=== PATIENT | female | born 1965 | race American Indian/Alaskan Native ===

== ENCOUNTER 2018-01-22 06:04 | Day surgery (SDC) | payer MEDICARE, MEDICAID ==
[2018-01-22] MEDS ORDERED: fentaNYL 100 MCG/2 ML SDV IV ONE ×3 (06:05→07:16)
[2018-01-22] MEDS ORDERED: Midazolam 1 MG/ML 2 ML SDV IV ONE ×3 (06:05→07:17)
[2018-01-22] MEDS ORDERED: fentaNYL 100 MCG/2 ML SDV ONE (06:15)
[2018-01-22] MEDS ORDERED: Midazolam 1 MG/ML 2 ML SDV ONE (06:15)
[2018-01-22] MEDS ORDERED: Dextrose 5%-0.45% NaCl 1,000 ML IV SCH (06:35)
--- NOTE | 2018-01-22 09:26 | OR ---
DATE: 01/22/2018 PROCEDURES PERFORMED: Esophagogastroduodenoscopy and multiple pinch biopsies. INSTRUMENT USED: GIF-H180 Olympus video panendoscope. PREMEDICATIONS: No oral topical anesthesia used. Fentanyl 100 mcg intravenous and Versed 2 mg intravenous. Nasal O2 cannula. The procedure was done under pulse oximetry, BP recording, and compliance monitor. INDICATION: The patient with longstanding heartburn, on PPI. Esophagogastroduodenoscopy is performed for detection of any active erosive lesions, Cox esophagus and/or malignancy also under consideration, H. pylori status to be determined, endoscopic hemostasis therapy if needed. DESCRIPTION OF PROCEDURE: The scope was passed with ease. Adequate visualization of the esophagus was made from proximal to distal areas. No upper esophageal lesions identified. No distal esophageal stricture. No uphill or downhill esophageal varices. No Annmarie-Farris tear. No evidence of erosive esophagitis by [place] criteria. No esophageal polyp or tumor mass identified. Z-line was seen at around 38 cm distal to the oral verge, configuration consistent with grade 1 by ZAP classification. Four-quadrant biopsies were taken from the pink columnar epithelium and sent for any evidence of intestinal metaplasia. No proximal gastric varices noted. Gastric fundus examination by retroflexion showed no polypoid lesions. No gastric ulcer, malignant mass, or vascular ectasia identified. The examination of the gastric mucosa was compromised a bit due to the presence of solid food material that could not be aspirated clear. Duodenal bulb showed no ulcer. Visualized second part of the duodenum was unremarkable. Multiple pinch biopsies were taken from the gastric antrum and proximal body and sent for PyloriTek test for H. pylori and histopathology. No bleeding was noted from any of the visualized areas at the completion of the examination. Photographs were taken of the duodenal bulb, gastric antrum and fundus, and distal esophagus. IMPRESSION: 1. Gastroparesis. 2. Columnar-lined distal esophagus. The patient tolerated the procedure well. [facility] /[id number]
--- NOTE | 2018-01-22 09:46 | LETTER ---
01/22/2018 JO-ANN [facility] [address] [place] [address] RE: CONNER KALAKj MORELOS : 1965 Dear Ms. Keenan: Ms. Kala Flores had esophagogastroduodenoscopy done this morning and she tolerated the procedure well. I herewith send a copy of the endoscopy note and photographs for your review. Thank you. Sincerely, [facility] /[id number]
[2018-01-22 10:41] VITALS: BP 109/63
== END 2018-01-22 09:24 | disposition home or self-care (01) ==
LOC: DL.ENDO 06:04
PROVIDERS: ATTEND Internal Medicine Gastroenterology
DX: R12 Heartburn (principal); K29.50 Unspecified chronic gastritis without bleeding; K22.8 Other specified diseases of esophagus; K31.84 Gastroparesis; E66.09 Other obesity due to excess calories; K21.9 Gastro-esophageal reflux disease without esophagitis; E03.9 Hypothyroidism, unspecified; F32.9 Major depressive disorder, single episode, unspecified; F41.1 Generalized anxiety disorder; Z87.891 Personal history of nicotine dependence; Z88.2 Allergy status to sulfonamides; Z91.011 Allergy to milk products; Z88.8 Allergy status to other drugs, medicaments and biological substances; Z91.048 Other nonmedicinal substance allergy status; Z79.899 Other long term (current) drug therapy
CPT/HCPCS: 43239; 87077; J2250; J3010; J7042

== ENCOUNTER 2018-01-28 05:58 | Day surgery (SDC) | payer MEDICARE, MEDICAID ==
[~2018-01-28 05:58] MED LIST: Dextrose 5%-0.45% NaCl 1,000 ML IV SCH; Sodium Chloride 0.9% 10 ML Syringe FLUSH PRN
[2018-01-28] MEDS ORDERED: fentaNYL 100 MCG/2 ML SDV IV ONE (05:59)
[2018-01-28] MEDS ORDERED: Midazolam 1 MG/ML 2 ML SDV IV ONE (05:59)
[2018-01-28] MEDS ORDERED: Midazolam 1 MG/ML 2 ML SDV ONE (06:17)
[2018-01-28] MEDS ORDERED: fentaNYL 100 MCG/2 ML SDV ONE (06:17)
[2018-01-28] MEDS: Dextrose 5%-0.45% NaCl 1,000 ML IV SCH (06:52)
[2018-01-28] MEDS: fentaNYL 100 MCG/2 ML SDV IV ONE ×4 (07:36→07:49)
[2018-01-28] MEDS: Midazolam 1 MG/ML 2 ML SDV IV ONE ×6 (07:38→07:46)
--- NOTE | 2018-01-28 08:38 | OR ---
DATE: 01/28/2018 PROCEDURES PERFORMED: Total colonoscopy and multiple cold snare polypectomies. INSTRUMENT USED: CF-H180AL Olympus video colonoscope. PREMEDICATIONS: Fentanyl 150 mcg intravenous and Versed 4 mg intravenous. Nasal O2 cannula. The procedure was done under pulse oximetry, BP recording, and manager scheduling. INDICATION: Screening colonoscopic examination is done for detection of any polypoid lesions and removal, endoscopic hemostasis therapy if needed. DESCRIPTION OF PROCEDURE: Initial rectal exam was unremarkable. Rigid anoscopy showed 3 mm sized benign-appearing polyp, cold snare polypectomy was done, the tissue was retrieved and sent for histopathology. The colonoscope was passed with ease up to the ileocecal area, photographs were taken of the cecum showing 3 mm sized benign-appearing polyp, cold snare polypectomy was done, the tissue was retrieved and sent for histopathology. No bleeding was noted from any of the visualized areas at the commencement of the examination. There was a large amount of fecal material, both solid and liquid, that had to be aspirated. No stricture. No vascular ectasia. No large isolated ulcerations seen. No evidence of diffuse inflammatory bowel disease in the form of friability, contact bleeding, or ulcerations. Probing the proximal sides of folds and flexures, using adequate distention and clearing up the stool material, withdrawal of the scope was made, cecum to rectum time over 6 minutes. No bleeding was noted from any of the visualized areas at the completion of examination. IMPRESSION: Diminutive rectal and cecal polyps. The patient tolerated the procedure well. [facility] /[id number]
--- NOTE | 2018-01-28 09:46 | LETTER ---
01/28/2018 JO-ANN [facility] [address] [place] [address] RE: KALA PRIETO : 1965 Dear Ms. Keenan: Ms. Kala Prieto had colonoscopic examination done this morning and she tolerated the procedure well. I herewith send a copy of the endoscopy note and photographs for your review. Thank you. Sincerely, [facility] /[id number]
[2018-01-28 10:39] VITALS: BP 118/66
== END 2018-01-28 10:00 | disposition home or self-care (01) ==
LOC: DL.ENDO 05:58
PROVIDERS: ATTEND Internal Medicine Gastroenterology
DX: Z12.11 Encounter for screening for malignant neoplasm of colon (principal); K63.5 Polyp of colon
CPT/HCPCS: 45385; J2250; J3010; J7042

== ENCOUNTER 2018-03-16 12:06 | Emergency (ER) | payer MEDICARE, MEDICAID ==
[2018-03-16] MEDS ORDERED: Sodium Chloride 0.9% 10 ML Syringe FLUSH PRN (12:42)
[2018-03-16] MEDS ORDERED: Sodium Chloride 0.9% 1,000 ML IV ONE (12:42)
--- NOTE | 2018-03-16 12:51 | EDM.PDOC ---
ED HPI GENERAL MEDICAL PROBLEM - General Chief Complaint: Neuro Symptoms/Deficits Stated Complaint: DIZZY, FELL DOWN Time Seen by Provider: 03/16/18 12:38 Source of Information: Reports: Patient, RN, RN Notes Reviewed History Limitations: Reports: No Limitations - History of Present Illness INITIAL COMMENTS - FREE TEXT/NARRATIVE: Pt to ER with c/o feeling dizzy beginning last evening. She states she fell to her knees but did not lose consciousness. Pt states the dizziness comes and goes. Pt states last time she had an episode such as this, she was dehydrated. Pt denies fever, chills, N/V/D, CP, SOB, visual disturbances, numbness or tingling. Onset: Sudden Onset Date: 03/15/18 - Related Data Allergies Allergy/AdvReac Type Severity Reaction Status Date / Time Milk Containing Products Allergy Other Verified 03/16/18 12:47 ragweed pollen Allergy Rash Verified 03/16/18 12:47 Sulfa (Sulfonamide AdvReac Stomach Verified 03/16/18 12:47 Antibiotics) Upset Home Meds: Home Meds Folic Acid 1 mg PO DAILY 08/03/16 [History] Hydroxychloroquine [Plaquenil] 200 mg PO BID 08/03/16 [History] Levothyroxine 25 mcg PO DAILY 08/03/16 [History] Losartan [Cozaar] 50 mg PO BID 08/03/16 [History] Mirtazapine [Remeron] 15 mg PO BEDTIME 08/03/16 [History] Omeprazole Magnesium [Prilosec Otc] 5 mg PO DAILY 08/03/16 [History] Black Cohosh 40 mg PO DAILY 10/24/17 [History] Naproxen 500 mg PO BIDMEALS 10/24/17 [History] Niacin 500 mg PO .BREAKFAST 10/24/17 [History] cloNIDine [Catapres] 0.1 mg PO DAILY 10/24/17 [History] predniSONE [Prednisone] 5 mg PO DAILY 10/24/17 [History] DULoxetine [Cymbalta] 20 mg PO DAILY 03/16/18 [History] Past Medical History HEENT History: Reports: Allergic Rhinitis Cardiovascular History: Reports: Hypertension Respiratory History: Reports: Pneumonia, Recurrent Gastrointestinal History: Reports: GERD, Hemorrhoids, Irritable Bowel Syndrome, Other (See Below) Other Gastrointestinal History: HX OF ABDOMINAL WALL CELLULITUS Genitourinary History: Reports: None 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 INSOMNIA Psychiatric History: Reports: Anxiety, Depression Endocrine/Metabolic History: Reports: Hypothyroidism, Obesity/BMI 30+, Other ( See Below) Other Endocrine/Metabolic History: OVERLAP FOR DERMATOMYOSITIS-LUPUS SYNDROME Hematologic History: Reports: None Immunologic History: Reports: SLE Oncologic (Cancer) History: Reports: None Dermatologic History: Other Dermatologic History: OVERLAP FOR DERMATOMYOSITIS-LUPUS SYNDROME. S/P HERPES ZOSTER - Infectious Disease History Infectious Disease History: Reports: Chicken Pox - Past Surgical History Head Surgeries/Procedures: Reports: None HEENT Surgical History: Reports: Adenoidectomy, Tonsillectomy, Other (See Below) Other HEENT Surgeries/Procedures: S/P LEFT EYE SURGERY D/T INFECTION Cardiovascular Surgical History: Reports: None Respiratory Surgical History: Reports: None GI Surgical History: Reports: Appendectomy, Colonoscopy, EGD Female Surgical History: Reports: Section, Hysterectomy Neurological Surgical History: Reports: None Musculoskeletal Surgical History: Reports: None Social & Family History - Family History Family Medical History: Noncontributory - Caffeine Use Caffeine Use: Reports: Tea Other Caffeine Use: RARE - Living Situation & Occupation Living situation: Reports: Alone Occupation: Disabled ED ROS GENERAL - Review of Systems Review Of Systems: ROS reveals no pertinent complaints other than HPI. ED EXAM, DIZZINESS - Physical Exam Exam: See Below Exam Limited By: No Limitations General Appearance: Alert, WD/WN, No Apparent Distress Eye Exam: Bilateral Eye: EOMI, Normal Inspection Ears: Normal External Exam, Hearing Grossly Normal Nose: Normal Inspection Throat/Mouth: Normal Inspection, Normal Lips, Normal Teeth, Normal Gums, Normal Oropharynx, Normal Voice, No Airway Compromise Head Exam: Atraumatic, Normocephalic Neck: Normal Inspection, Supple, Non-Tender, Full Range of Motion Respiratory/Chest: No Respiratory Distress, Lungs Clear, Normal Breath Sounds, No Accessory Muscle Use, Chest Non-Tender Cardiovascular: Normal Peripheral Pulses, Regular Rate, Rhythm, No Edema, No Gallop, No JVD, No Murmur, No Rub GI/Abdominal: Normal Bowel Sounds, Soft, Non-Tender, No Organomegaly, No Distention, No Abnormal Bruit, No Mass, Pelvis Stable (Female) Exam: Deferred Rectal (Female) Exam: Deferred Neurological: Alert, Normal Mood/Affect, Normal Dorsiflexion, CN II-XII Intact, Normal Plantar Flexion, Normal Gait, Normal Reflexes, No Motor/Sensory Deficits , Oriented x 3 Back Exam: Normal Inspection, Full Range of Motion Extremities: Normal Inspection, Normal Range of Motion, Non-Tender, No Pedal Edema, Normal Capillary Refill Psychiatric: Normal Affect, Normal Mood Skin Exam: Warm, Dry, Intact, Normal Color, No Rash EKG INTERPRETATION EKG Date: 03/16/18 Time: 12:46 Rhythm: NSR Rate (Beats/Min): 70 [place]: Normal P-Wave: Present QRS: Normal ST-T: Normal QT: Normal Comparison: NA - No Prior EKG Course - Vital Signs Last Recorded V/S: Last Vital Signs Temp 96.9 F 03/16/18 14:05 Pulse 66 03/16/18 14:05 Resp 16 03/16/18 14:05 BP 108/52 L 03/16/18 14:05 Pulse Ox 100 03/16/18 14:05 - Orders/Labs/Meds Orders: Active Orders 24 hr Category Date Time Status EKG Documentation Completion [RC] STAT Care 03/16/18 12:41 Active Peripheral IV Care [RC] . DIRECTED Care 03/16/18 12:42 Active DRUG SCREEN URINE BIORAD [URCHEM] Stat Lab 03/16/18 13:16 Ordered UA W/MICROSCOPIC [URIN] Stat Lab 03/16/18 13:16 Ordered Sodium Chloride 0.9% [Saline Flush] Med 03/16/18 12:42 Active 10 ml FLUSH ASDIRECTED PRN Peripheral IV Insertion Adult [OM.PC] Stat Oth 03/16/18 12:41 Ordered Medication Orders Sodium Chloride (Saline Flush) 10 ml FLUSH ASDIRECTED PRN PRN Reason: Keep Vein Open Last Admin: 03/16/18 13:10 Dose: 10 ml Labs: Laboratory Tests 03/16/18 03/16/18 03/16/18 Range/Units 12:57 12:57 13:16 WBC 6.0 (5.0-10.0) 10^3/uL RBC 4.22 (4.2-5.4) 10^6/uL Hgb 12.5 (12.0-16.0) g/dL Hct 39.5 (37.0-47.0) % MCV 93.6 (80-100) fL MCH 29.6 (27.0-34.0) pg MCHC 31.6 L (33.0-35.0) g/dL Plt Count 302 (150-450) 10^3/uL Neut % (Auto) 64.9 (42.2-75.2) % Lymph % (Auto) 25.0 (20.5-50.1) % [place] % (Auto) 6.8 (2-8) % Eos % (Auto) 1.3 (1.0-3.0) % Baso % (Auto) 2.0 H (0.0-1.0) % Add Manual Diff Yes Neutrophils % (Manual) 69 (42-75) % Lymphocytes % (Manual) 23 (20-50) % Monocytes % (Manual) 7 (2-8) % Eosinophils % (Manual) 1 (1-3) % Sodium 139 (135-145) mmol/L Potassium 3.9 (3.6-5.0) mmol/L Chloride 105 (101-111) mmol/L Carbon Dioxide 24.0 (21.0-31.0) mmol/L Anion Gap 13.9 BUN 15 (7-18) mg/dL Creatinine 0.7 (0.6-1.3) mg/dL Est Cr Clr Drug Dosing 82.67 mL/min Estimated GFR (MDRD) > 60 BUN/Creatinine Ratio 21.42 Glucose 89 (74-105) mg/dL Calcium 8.3 L (8.4-10.2) mg/dl Total Bilirubin 0.4 (0.2-1.0) mg/dL AST 20 (10-42) IU/L ALT 15 (10-60) IU/L Alkaline Phosphatase 106 (42-121) IU/L Troponin I < 0.02 (0.00-0.02) ng/ml Total Protein 7.1 (6.7-8.2) g/dl Albumin 3.5 (3.2-5.5) g/dl Globulin 3.6 Albumin/Globulin Ratio 0.97 Urine Color Yellow (YELLOW) Urine Appearance Clear (CLEAR) Urine pH 5.5 (5.0-9.0) Ur Specific [place] >= 1.030 (1.005-1.030) Urine Protein 30 H (NEGATIVE) Urine Glucose (UA) Negative (NEGATIVE) Urine Ketones Negative (NEGATIVE) Urine Occult Blood Negative (NEGATIVE) Urine Nitrite Negative (NEGATIVE) Urine Bilirubin Negative (NEGATIVE) Urine Urobilinogen 0.2 (0.2-1.0) mg/dL Ur Leukocyte Esterase Negative (NEGATIVE) Urine RBC 0-5 /HPF Urine WBC 0-5 (0-5/HPF) /HPF Ur Epithelial Cells Many H /HPF Calcium Oxalate Crystal Moderate H /HPF Urine Bacteria Many H (0-FEW/HPF) /HPF Urine Mucus Moderate H /LPF Urine Opiates Screen (NEGATIVE) Ur Oxycodone Screen (NEGATIVE) Urine Methadone Screen (NEGATIVE) Ur Barbiturates Screen (NEGATIVE) U Tricyclic Antidepress (NEGATIVE) Ur Phencyclidine Scrn (NEGATIVE) Ur Amphetamine Screen (NEGATIVE) U Methamphetamines Scrn (NEGATIVE) Urine MDMA Screen (NEGATIVE) U Benzodiazepines Scrn (NEGATIVE) Urine Cocaine Screen (NEGATIVE) U Marijuana (THC) Screen (NEGATIVE) Ethyl Alcohol < 5 mg/dL 03/16/18 Range/Units 13:16 WBC (5.0-10.0) 10^3/uL RBC (4.2-5.4) 10^6/uL Hgb (12.0-16.0) g/dL Hct (37.0-47.0) % MCV (80-100) fL MCH (27.0-34.0) pg MCHC (33.0-35.0) g/dL Plt Count (150-450) 10^3/uL Neut % (Auto) (42.2-75.2) % Lymph % (Auto) (20.5-50.1) % [place] % (Auto) (2-8) % Eos % (Auto) (1.0-3.0) % Baso % (Auto) (0.0-1.0) % Add Manual Diff Neutrophils % (Manual) (42-75) % Lymphocytes % (Manual) (20-50) % Monocytes % (Manual) (2-8) % Eosinophils % (Manual) (1-3) % Sodium (135-145) mmol/L Potassium (3.6-5.0) mmol/L Chloride (101-111) mmol/L Carbon Dioxide (21.0-31.0) mmol/L Anion Gap BUN (7-18) mg/dL Creatinine (0.6-1.3) mg/dL Est Cr Clr Drug Dosing mL/min Estimated GFR (MDRD) BUN/Creatinine Ratio Glucose (74-105) mg/dL Calcium (8.4-10.2) mg/dl Total Bilirubin (0.2-1.0) mg/dL AST (10-42) IU/L ALT (10-60) IU/L Alkaline Phosphatase (42-121) IU/L Troponin I (0.00-0.02) ng/ml Total Protein (6.7-8.2) g/dl Albumin (3.2-5.5) g/dl Globulin Albumin/Globulin Ratio Urine Color (YELLOW) Urine Appearance (CLEAR) Urine pH (5.0-9.0) Ur Specific [place] (1.005-1.030) Urine Protein (NEGATIVE) Urine Glucose (UA) (NEGATIVE) Urine Ketones (NEGATIVE) Urine Occult Blood (NEGATIVE) Urine Nitrite (NEGATIVE) Urine Bilirubin (NEGATIVE) Urine Urobilinogen (0.2-1.0) mg/dL Ur Leukocyte Esterase (NEGATIVE) Urine RBC /HPF Urine WBC (0-5/HPF) /HPF Ur Epithelial Cells /HPF Calcium Oxalate Crystal /HPF Urine Bacteria (0-FEW/HPF) /HPF Urine Mucus /LPF Urine Opiates Screen Negative (NEGATIVE) Ur Oxycodone Screen Negative (NEGATIVE) Urine Methadone Screen Negative (NEGATIVE) Ur Barbiturates Screen Negative (NEGATIVE) U Tricyclic Antidepress Negative (NEGATIVE) Ur Phencyclidine Scrn Negative (NEGATIVE) Ur Amphetamine Screen Negative (NEGATIVE) U Methamphetamines Scrn Negative (NEGATIVE) Urine MDMA Screen Negative (NEGATIVE) U Benzodiazepines Scrn Negative (NEGATIVE) Urine Cocaine Screen Negative (NEGATIVE) U Marijuana (THC) Screen Positive H (NEGATIVE) Ethyl Alcohol mg/dL Meds: Medications Generic Name Dose Route Start Last Admin Trade Name Freq PRN Reason Stop Dose Admin Sodium Chloride 10 ml 03/16/18 12:42 03/16/18 13:10 Saline Flush FLUSH 10 ml ASDIRECTED PRN Administration Keep Vein Open Discontinued Medications Generic Name Dose Route Start Last Admin Trade Name Freq PRN Reason Stop Dose Admin Sodium Chloride 1,000 mls @ 999 mls/hr 03/16/18 12:42 03/16/18 13:19 Normal Saline IV 03/16/18 13:42 999 mls/hr .BOLUS ONE Administration - Radiology Interpretation Free Text/Narrative:: Portable chest xray: No acute findings See rad report Departure - Departure Time of Disposition: 14:30 Disposition: Home, Self-Care 01 Condition: Fair Clinical Impression: Dizziness, Anxiety - Discharge Information *PRESCRIPTION DRUG MONITORING PROGRAM REVIEWED*: No *COPY OF PRESCRIPTION DRUG MONITORING REPORT IN PATIENT DELANO: No Instructions: Panic Attack, [id number], Dizziness, [id number] Forms: ED Department Discharge Additional Instructions: Drink plenty of fluids Follow up with your primary care facility RX: Meclizine - My Orders Last 24 Hours: My Active Orders 03/16/18 12:41 EKG Documentation Completion [RC] STAT Peripheral IV Insertion Adult [OM.PC] Stat 03/16/18 12:42 Peripheral IV Care [RC] . DIRECTED Sodium Chloride 0.9% [Saline Flush] 10 ml FLUSH ASDIRECTED PRN 03/16/18 13:16 DRUG SCREEN URINE BIORAD [URCHEM] Stat UA W/MICROSCOPIC [URIN] Stat - Assessment/Plan Last 24 Hours: My Active Orders 03/16/18 12:41 EKG Documentation Completion [RC] STAT Peripheral IV Insertion Adult [OM.PC] Stat 03/16/18 12:42 Peripheral IV Care [RC] . DIRECTED Sodium Chloride 0.9% [Saline Flush] 10 ml FLUSH ASDIRECTED PRN 03/16/18 13:16 DRUG SCREEN URINE BIORAD [URCHEM] Stat UA W/MICROSCOPIC [URIN] Stat
--- NOTE | 2018-03-16 13:02 | CR ---
Clinical history: 53-year-old female chest pain and "crackles" lung bases. Interpretation: Reasonable inspiratory effort morbidly obese patient (small focal eventration right h emidiaphragm). Normal cardiac silhouette without cephalization of vascular flow, signs of alveolar edema or dependen t pleural fluid accumulation. No lung mass, hilar lymphadenopathy or focal lobar pneumonia. No atelectasis/collapse. No pneumothorax. CONCLUSION: No acute cardiopulmonary abnormality.
[2018-03-16 13:23] LABS: ANION GAP 13.9; CHLORIDE,CL 105 mmol/L (101-111); SODIUM,NA 139 mmol/L (135-145)
[2018-03-16 14:05] VITALS: BP 108/52
== END 2018-03-16 14:15 | disposition home or self-care (01) ==
LOC: DL.ED 12:06
DX: R42 Dizziness and giddiness (principal); F41.9 Anxiety disorder, unspecified; K21.9 Gastro-esophageal reflux disease without esophagitis; E03.9 Hypothyroidism, unspecified; F32.9 Major depressive disorder, single episode, unspecified; Z79.899 Other long term (current) drug therapy; Z88.2 Allergy status to sulfonamides; Z91.018 Allergy to other foods; Z91.011 Allergy to milk products
CPT/HCPCS: 36415; 71045; 80053; 80305; 81001; 84484; 85025; 93005; 93010; 96360; 99284; G0480; J7030; J7050; 99283

== ENCOUNTER 2018-09-22 07:06 | Emergency (ER) | payer MEDICARE, MEDICAID ==
[2018-09-22 08:12] LABS: ANION GAP 15.3; CHLORIDE,CL 104 mmol/L (101-111); SODIUM,NA 137 mmol/L (135-145)
--- NOTE | 2018-09-22 08:54 | EDM.PDOC ---
ED HPI GENERAL MEDICAL PROBLEM - General Chief Complaint: General Stated Complaint: ARM PAIN [id number] Time Seen by Provider: 09/22/18 08:07 Source of Information: Reports: Patient, RN, RN Notes Reviewed History Limitations: Reports: No Limitations - History of Present Illness INITIAL COMMENTS - FREE TEXT/NARRATIVE: Patient presents to er with complaint of pain in upper right arm. She states it began 6 hours ago. Starts at thumb and goes up the right arm to shoulder. At 3 a.m. unable to sleep due to pain in right arm. He rates pain 8/10 in right arm. Onset: Today Duration: Constant Location: Reports: Upper Extremity, Right Quality: Reports: Ache Severity: Moderate Improves with: Reports: None Worsens with: Reports: None Associated Symptoms: Reports: No Other Symptoms - Related Data Allergies Allergy/AdvReac Type Severity Reaction Status Date / Time Milk Containing Products Allergy Other Verified 09/22/18 07:56 ragweed pollen Allergy Rash Verified 09/22/18 07:56 Sulfa (Sulfonamide AdvReac Stomach Verified 09/22/18 07:56 Antibiotics) Upset Home Meds: Home Meds Folic Acid 1 mg PO DAILY 08/03/16 [History] Hydroxychloroquine [Plaquenil] 200 mg PO BID 08/03/16 [History] Levothyroxine 0.025 mcg PO DAILY 08/03/16 [History] Losartan [Cozaar] 25 mg PO BID 08/03/16 [History] Mirtazapine [Remeron] 15 mg PO BEDTIME 08/03/16 [History] Omeprazole Magnesium [Prilosec Otc] 20 mg PO DAILY 08/03/16 [History] Naproxen 500 mg PO BIDMEALS 10/24/17 [History] Niacin 500 mg PO DAILY 10/24/17 [History] DULoxetine [Cymbalta] 20 mg PO DAILY 03/16/18 [History] Gabapentin [Neurontin] 600 mg PO TID 09/22/18 [History] Meclizine [Antivert] 25 mg PO DAILY PRN 09/22/18 [History] Methotrexate Sodium/PF [Methotrexate 50 mg/2 ml Vial] 0.06 ml IM ASDIRECTED [History] Past Medical History HEENT History: Reports: Allergic Rhinitis Cardiovascular History: Reports: Hypertension Respiratory History: Reports: Pneumonia, Recurrent Gastrointestinal History: Reports: GERD, Hemorrhoids, Irritable Bowel Syndrome, Other (See Below) Other Gastrointestinal History: HX OF ABDOMINAL WALL CELLULITUS Genitourinary History: Reports: None 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 INSOMNIA Psychiatric History: Reports: Anxiety, Depression Endocrine/Metabolic History: Reports: Hypothyroidism, Obesity/BMI 30+, Other ( See Below) Other Endocrine/Metabolic History: OVERLAP FOR DERMATOMYOSITIS-LUPUS SYNDROME Hematologic History: Reports: None Immunologic History: Reports: SLE Oncologic (Cancer) History: Reports: None Dermatologic History: Other Dermatologic History: OVERLAP FOR DERMATOMYOSITIS-LUPUS SYNDROME. S/P HERPES ZOSTER - Infectious Disease History Infectious Disease History: Reports: Chicken Pox - Past Surgical History Head Surgeries/Procedures: Reports: None HEENT Surgical History: Reports: Adenoidectomy, Tonsillectomy, Other (See Below) Other HEENT Surgeries/Procedures: S/P LEFT EYE SURGERY D/T INFECTION Cardiovascular Surgical History: Reports: None Respiratory Surgical History: Reports: None GI Surgical History: Reports: Appendectomy, Colonoscopy, EGD Female Surgical History: Reports: Section, Hysterectomy Neurological Surgical History: Reports: None Musculoskeletal Surgical History: Reports: None Social & Family History - Family History Family Medical History: Noncontributory - Caffeine Use Caffeine Use: Reports: Tea Other Caffeine Use: RARE - Living Situation & Occupation Living situation: Reports: Alone Occupation: Disabled ED ROS GENERAL - Review of Systems Review Of Systems: ROS reveals no pertinent complaints other than HPI. ED EXAM, GENERAL - Physical Exam Exam: See Below Exam Limited By: No Limitations General Appearance: Alert, WD/WN, No Apparent Distress Eye Exam: Bilateral Eye: EOMI, PERRL Ears: Normal External Exam, Normal Canal, Hearing Grossly Normal, Normal TMs Nose: Normal Inspection, Normal Mucosa, No Blood Throat/Mouth: Normal Inspection, Normal Lips, Normal Teeth, Normal Gums, Normal Oropharynx, Normal Voice, No Airway Compromise Head: Atraumatic, Normocephalic Neck: Normal Inspection, Supple, Non-Tender, Full Range of Motion Respiratory/Chest: Other (coarse) Cardiovascular: Normal Peripheral Pulses, Regular Rate, Rhythm, No Edema, No Gallop, No JVD, No Murmur, No Rub GI/Abdominal: Normal Bowel Sounds, Soft, Non-Tender, No Organomegaly, No Distention, No Abnormal Bruit, No Mass (Female) Exam: Deferred Rectal (Female) Exam: Deferred Back Exam: Normal Inspection, Full Range of Motion, NT Extremities: Other (weakness) Neurological: Alert, Oriented, CN II-XII Intact, Normal Cognition, Normal Gait, Normal Reflexes, No Motor/Sensory Deficits Psychiatric: Anxious Skin Exam: Warm, Dry, Intact, Normal Color, No Rash Lymphatic: No Adenopathy Course - Orders/Labs/Meds Labs: Laboratory Tests 09/22/18 09/22/18 Range/Units 07:27 07:27 WBC 3.5 L (5.0-10.0) 10^3/uL RBC 4.17 L (4.2-5.4) 10^6/uL Hgb 12.4 (12.0-16.0) g/dL Hct 38.9 (37.0-47.0) % MCV 93.3 (80-100) fL MCH 29.7 (27.0-34.0) pg MCHC 31.9 L (33.0-35.0) g/dL Plt Count 327 (150-450) 10^3/uL Neut % (Auto) 53.6 (42.2-75.2) % Lymph % (Auto) 35.0 (20.5-50.1) % [place] % (Auto) 6.3 (2-8) % Eos % (Auto) 3.4 H (1.0-3.0) % Baso % (Auto) 1.7 H (0.0-1.0) % Sodium 137 (135-145) mmol/L Potassium 3.3 L (3.6-5.0) mmol/L Chloride 104 (101-111) mmol/L Carbon Dioxide 21.0 (21.0-31.0) mmol/L Anion Gap 15.3 BUN 18 (7-18) mg/dL Creatinine 0.7 (0.6-1.3) mg/dL Est Cr Clr Drug Dosing TNP Estimated GFR (MDRD) > 60 BUN/Creatinine Ratio 25.71 Glucose 117 H (74-105) mg/dL Calcium 8.7 (8.4-10.2) mg/dl Total Bilirubin 0.7 (0.2-1.0) mg/dL AST 26 (10-42) IU/L ALT 20 (10-60) IU/L Alkaline Phosphatase 103 (42-121) IU/L Troponin I < 0.02 (0.00-0.02) ng/ml Total Protein 7.3 (6.7-8.2) g/dl Albumin 3.7 (3.2-5.5) g/dl Globulin 3.6 Albumin/Globulin Ratio 1.03 Ethyl Alcohol < 5 mg/dL - Radiology Interpretation Free Text/Narrative:: Right Shoulder xray: Findings/impression: There is mild to moderate a.c. joint DJD with inferior projecting subacromial osteophyte formation. Alignment is anatomic. There is no fracture or intrinsic suspect osseous lesion. Thank you for allowing us to participate in the care of your patient. Dictated and Authenticated by: Julien Pérez MD 09/22/2018 8:47 AM Central Time ([place] & [place]) See rad report Departure - Departure Time of Disposition: 09:04 Disposition: Home, Self-Care 01 Condition: Fair Clinical Impression: DJD of right shoulder Qualifiers: Osteoarthritis type: unspecified Qualified Code(s): M19.011 - Primary osteoarthritis, right shoulder - Discharge Information *PRESCRIPTION DRUG MONITORING PROGRAM REVIEWED*: No *COPY OF PRESCRIPTION DRUG MONITORING REPORT IN PATIENT DELANO: No Instructions: Osteoarthritis, What You Need to Know About Osteoarthritis Referrals: PCP,None [Primary Care Provider] - Forms: ED Department Discharge Additional Instructions: May use Tylenol as directed for pain Use heat and ice to the shoulder as tolerated Follow up with your primary care facility
== END 2018-09-22 09:14 | disposition home or self-care (01) ==
LOC: DL.ED 07:06
DX: M19.011 Primary osteoarthritis, right shoulder (principal); F41.9 Anxiety disorder, unspecified; F32.9 Major depressive disorder, single episode, unspecified; I10 Essential (primary) hypertension; Z91.011 Allergy to milk products; Z88.2 Allergy status to sulfonamides; Z79.899 Other long term (current) drug therapy
CPT/HCPCS: 36415; 73030; 80053; 84484; 85025; 99284; G0480

== ENCOUNTER 2018-12-12 21:27 | Emergency (ER) | payer MEDICARE, MEDICAID ==
[2018-12-12 21:45] VITALS: BP 99/85; PULSE 109
[2018-12-12] MEDS ORDERED: Diphtheria,Pertussis(Acell),Tetanus Vaccine 0.5 ML SDV IM ONE (21:52)
--- NOTE | 2018-12-12 21:56 | EDM.PDOC ---
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 and advise her to come for eval' - Related Data Allergies Allergy/AdvReac Type Severity Reaction Status Date / Time Milk Containing Products Allergy Other Verified 09/22/18 07:56 ragweed pollen Allergy Rash Verified 09/22/18 07:56 Sulfa (Sulfonamide AdvReac Stomach Verified 09/22/18 07:56 Antibiotics) Upset Home Meds: Home Meds Folic Acid 1 mg PO DAILY 08/03/16 [History] Hydroxychloroquine [Plaquenil] 200 mg PO BID 08/03/16 [History] Levothyroxine 0.025 mcg PO DAILY 08/03/16 [History] Losartan [Cozaar] 25 mg PO BID 08/03/16 [History] Mirtazapine [Remeron] 15 mg PO BEDTIME 08/03/16 [History] Omeprazole Magnesium [Prilosec Otc] 20 mg PO DAILY 08/03/16 [History] Naproxen 500 mg PO BIDMEALS 10/24/17 [History] Niacin 500 mg PO DAILY 10/24/17 [History] DULoxetine [Cymbalta] 20 mg PO DAILY 03/16/18 [History] Gabapentin [Neurontin] 600 mg PO TID 09/22/18 [History] Meclizine [Antivert] 25 mg PO DAILY PRN 09/22/18 [History] Methotrexate Sodium/PF [Methotrexate 50 mg/2 ml Vial] 0.06 ml IM ASDIRECTED [History] Past Medical History HEENT History: Reports: Allergic Rhinitis Cardiovascular History: Reports: Hypertension Respiratory History: Reports: Pneumonia, Recurrent Gastrointestinal History: Reports: GERD, Hemorrhoids, Irritable Bowel Syndrome, Other (See Below) Other Gastrointestinal History: HX OF ABDOMINAL WALL CELLULITUS Genitourinary History: Reports: None 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 INSOMNIA Psychiatric History: Reports: Anxiety, Depression Endocrine/Metabolic History: Reports: Hypothyroidism, Obesity/BMI 30+, Other ( See Below) Other Endocrine/Metabolic History: OVERLAP FOR DERMATOMYOSITIS-LUPUS SYNDROME Hematologic History: Reports: None Immunologic History: Reports: SLE Oncologic (Cancer) History: Reports: None Dermatologic History: Other Dermatologic History: OVERLAP FOR DERMATOMYOSITIS-LUPUS SYNDROME. S/P HERPES ZOSTER - Infectious Disease History Infectious Disease History: Reports: Chicken Pox - Past Surgical History Head Surgeries/Procedures: Reports: None HEENT Surgical History: Reports: Adenoidectomy, Tonsillectomy, Other (See Below) Other HEENT Surgeries/Procedures: S/P LEFT EYE SURGERY D/T INFECTION Cardiovascular Surgical History: Reports: None Respiratory Surgical History: Reports: None GI Surgical History: Reports: Appendectomy, Colonoscopy, EGD Female Surgical History: Reports: Section, Hysterectomy Neurological Surgical History: Reports: None Musculoskeletal Surgical History: Reports: None Social & Family History - Family History Family Medical History: Noncontributory - Caffeine Use Caffeine Use: Reports: Tea Other Caffeine Use: RARE - Living Situation & Occupation Living situation: Reports: Alone Occupation: Disabled ED ROS GENERAL - Review of Systems Review Of Systems: ROS reveals no pertinent complaints other than HPI. ED EXAM, ANIMAL BITE - Physical Exam Exam: See Below Exam Limited By: No Limitations General Appearance: Alert, WD/WN, Mild Distress, Other (upset) Ears: Hearing Grossly Normal Throat/Mouth: Normal Voice, No Airway Compromise Head: Atraumatic Neck: Non-Tender, Full Range of Motion Respiratory/Chest: No Respiratory Distress Cardiovascular: Regular Rate, Rhythm GI/Abdominal: Soft, Non-Tender Extremities: Other (left buttocks spfl bite 1" diameter without active bleeding. local bruising. spfl skin abrasin) Neurological: Alert, Oriented, Normal Cognition, Normal Gait, No Motor/Sensory Deficits Psychiatric: Other (upset) Lymphatic: No Adenopathy Course - Vital Signs Last Recorded V/S: Last Vital Signs Temp 36.4 C 12/12/18 21:44 Pulse 109 H 12/12/18 21:44 Resp 18 12/12/18 21:44 BP 99/85 12/12/18 21:44 Pulse Ox 100 12/12/18 21:44 - Orders/Labs/Meds Orders: Active Orders 24 hr Category Date Time Status Vaccines to be Administered [RC] PER UNIT ROUTINE Care 12/12/18 21:52 Ordered Diphth,Pertuss(Acell),Tet Vac [Adacel] Med 12/12/18 21:52 Once 0.5 ml IM .ONCE ONE Departure - Departure Time of Disposition: 21:55 Disposition: Home, Self-Care 01 Condition: Good Clinical Impression: Dog bite of buttock Qualifiers: Encounter type: initial encounter Laterality: left Qualified Code(s): S31.825A - Open bite of left buttock, initial encounter; W54.0XXA - Bitten by dog, initial encounter - Discharge Information Instructions: Animal Bite, Adult, [id number] Additional Instructions: 1) keep area clean 2) follow up at clinic - My Orders Last 24 Hours: My Active Orders 12/12/18 21:52 Vaccines to be Administered [RC] PER UNIT ROUTINE Diphth,Pertuss(Acell),Tet Vac [Adacel] 0.5 ml IM .ONCE ONE - Assessment/Plan Last 24 Hours: My Active Orders 12/12/18 21:52 Vaccines to be Administered [RC] PER UNIT ROUTINE Diphth,Pertuss(Acell),Tet Vac [Adacel] 0.5 ml IM .ONCE ONE
== END 2018-12-12 22:17 | disposition home or self-care (01) ==
LOC: DL.ED 21:27
DX: S31.825A Open bite of left buttock, initial encounter (principal); Z23 Encounter for immunization; I10 Essential (primary) hypertension; K21.9 Gastro-esophageal reflux disease without esophagitis; F41.9 Anxiety disorder, unspecified; F32.9 Major depressive disorder, single episode, unspecified; E03.9 Hypothyroidism, unspecified; Z79.899 Other long term (current) drug therapy; Z91.011 Allergy to milk products; Z91.018 Allergy to other foods; Z88.2 Allergy status to sulfonamides; W54.0XXA Bitten by dog, initial encounter
CPT/HCPCS: 90471; 90715; 99283

== ENCOUNTER 2020-09-25 12:41 | Emergency (ER) | payer MEDICARE, MEDICAID ==
[2020-09-25 13:15] VITALS: BP 107/78; PULSE 99
[2020-09-25 14:37] LABS: ANION GAP 14.8 mEq/L (7-13); CHLORIDE,CL 104 mmol/L (98-107); SODIUM,NA 141 mmol/L (136-145)
--- NOTE | 2020-09-25 14:37 | CR ---
PROCEDURE INFORMATION: Exam: XR Chest Exam date and time: 09/25/2020 2:13 PM Age: 55 years old Clinical indication: Shortness of breath; Additional info: SOB TECHNIQUE: Imaging protocol: XR of the chest Views: 2 views. COMPARISON: CR Chest 1V Frontal 03/16/2018 12:50 PM FINDINGS: Lungs: Unremarkable. No consolidation. Pleural spaces: Unremarkable. No pleural effusion. No pneumothorax. Heart/Mediastinum: Mild cardiomegaly. Bones/joints: Unremarkable. IMPRESSION: Mild cardiomegaly. Otherwise unremarkable chest
[2020-09-25] MEDS ORDERED: Iopamidol 755 Mg/ML 100 ML Bottle IVPUSH ONE (15:14)
--- NOTE | 2020-09-25 16:46 | EDM.PDOC ---
Scribed by Sarahi Jimenez 09/25/20 1446 for Paula Woo NP <Manoj Gómez - Last Filed: 09/25/20 17:00> ED HPI GENERAL MEDICAL PROBLEM - General Chief Complaint: Respiratory Problem Stated Complaint: TROUBLE BREATHING Time Seen by Provider: 09/25/20 13:25 - Related Data Allergies Allergy/AdvReac Type Severity Reaction Status Date / Time Milk Containing Products Allergy Other Verified 09/25/20 13:12 ragweed pollen Allergy Rash Verified 09/25/20 13:12 tramadol Allergy Other Verified 09/25/20 13:12 Sulfa (Sulfonamide AdvReac Stomach Verified 09/25/20 13:12 Antibiotics) Upset Home Meds: Home Meds DULoxetine [Cymbalta] 60 mg PO DAILY 09/25/20 [History] FLUoxetine HCl [Prozac] 20 mg PO DAILY 09/25/20 [History] Gabapentin [Neurontin] 600 mg PO DAILY 09/25/20 [History] Levothyroxine 25 mcg PO ACBREAKFAST 09/25/20 [History] Losartan [Cozaar] 25 mg PO DAILY 09/25/20 [History] Methotrexate Sodium/PF [Methotrexate 25 mg/ml Vial] 25 mg IJ ASDIRECTED 09/25/20 [History] Mirtazapine 15 mg PO DAILY 09/25/20 [History] Naproxen 500 mg PO BID PRN 09/25/20 [History] Omeprazole 10 mg PO ACBREAKFAST 09/25/20 [History] azaTHIOprine [Azathioprine] 100 mg PO DAILY 09/25/20 [History] predniSONE [Prednisone] 10 mg PO DAILY 09/25/20 [History] Course - Re-Assessments/Exams Free Text/Narrative Re-Assessment/Exam: 09/25/20 17:00 DIscussed labs, ct, xray, exam with pt. Explained the presence of gallstones on her CT and informed her to discuss the findings weith her priary care provider when she meets with her at her appointment on Sunday. Pt understood. Departure - Departure Time of Disposition: 17:02 Disposition: Home, Self-Care 01 Clinical Impression: Dyspnea, unspecified Qualifiers: Dyspnea type: unspecified Qualified Code(s): R06.00 - Dyspnea, unspecified Cholelithiasis Qualifiers: Cholelithiasis location: gallbladder Cholecystitis presence: without cholecystitis Biliary obstruction: without biliary obstruction Qualified Code(s): K80.20 - Calculus of gallbladder without cholecystitis without obstruction - Discharge Information *PRESCRIPTION DRUG MONITORING PROGRAM REVIEWED*: Not Applicable *COPY OF PRESCRIPTION DRUG MONITORING REPORT IN PATIENT DELANO: Not Applicable Instructions: Cholelithiasis, [id number] Forms: ED Department Discharge Additional Instructions: Follow up with your primary care physician when you go to your appointment on Sunday. If any new symptoms or concerns develop contact your primary care fa cility or return to the ER. <Paula Woo - Last Filed: 09/25/20 17:34> ED HPI GENERAL MEDICAL PROBLEM - General Source of Information: Reports: Patient History Limitations: Reports: No Limitations - History of Present Illness INITIAL COMMENTS - FREE TEXT/NARRATIVE: 55 y/o F c/o tingling in L arm off and on for three days as well as intermittent L elg cramping, dry cough, nausea. Over the last three days pt will have episodes where she has her breath taken away and an odd sensation in her chest. No similar instances in the past. Still has her gallbladder. No recent known exposure to COVID. Denies fever, chils, drugs, etoh, abd pn, otto, vision prob, difficulty voiding. Onset: Gradual Duration: Day(s): Location: Reports: Chest, Generalized Improves with: Reports: None Worsens with: Reports: None Back Pain Score (Numeric/FACES): 4 Past Medical History HEENT History: Reports: Allergic Rhinitis Cardiovascular History: Reports: Hypertension Respiratory History: Reports: Pneumonia, Recurrent Gastrointestinal History: Reports: GERD, Hemorrhoids, Irritable Bowel Syndrome, Other (See Below) Other Gastrointestinal History: HX OF ABDOMINAL WALL CELLULITUS Genitourinary History: Reports: None FEATHERER History: Reports: Musculoskeletal History: Reports: Osteoporosis, SLE, Other (See Below) Other Musculoskeletal History: DEGENERATIVE JOINT DISEASE Neurological History: Reports: Neuropathy, Peripheral, Other (See Below) Other Neuro History: lupus. INSOMNIA Psychiatric History: Reports: Anxiety, Depression Endocrine/Metabolic History: Reports: Hypothyroidism, Obesity/BMI 30+, Other (See Below) Other Endocrine/Metabolic History: OVERLAP FOR DERMATOMYOSITIS-LUPUS SYNDROME Hematologic History: Reports: None Immunologic History: Reports: SLE Oncologic (Cancer) History: Reports: None Dermatologic History: Other Dermatologic History: OVERLAP FOR DERMATOMYOSITIS-LUPUS SYNDROME. S/P HERPES ZOSTER - Infectious Disease History Infectious Disease History: Reports: Chicken Pox - Past Surgical History Head Surgeries/Procedures: Reports: None HEENT Surgical History: Reports: Adenoidectomy, Tonsillectomy, Other (See Below) Other HEENT Surgeries/Procedures: S/P LEFT EYE SURGERY D/T INFECTION Cardiovascular Surgical History: Reports: None Respiratory Surgical History: Reports: None GI Surgical History: Reports: Appendectomy, Colonoscopy, EGD Female Surgical History: Reports: Section, Hysterectomy Neurological Surgical History: Reports: None Musculoskeletal Surgical History: Reports: None Social & Family History - Family History Family Medical History: No Pertinent Family History - Caffeine Use Caffeine Use: Reports: Tea Other Caffeine Use: RARE - Living Situation & Occupation Living situation: Reports: Alone Occupation: Disabled ED ROS GENERAL - Review of Systems Review Of Systems: Comprehensive ROS is negative, except as noted in HPI. ED EXAM, GENERAL - Physical Exam Exam: See Below Exam Limited By: No Limitations General Appearance: Alert, WD/WN, No Apparent Distress Eye Exam: Bilateral Eye: PERRL Ears: Normal External Exam, Normal Canal, Hearing Grossly Normal, Normal TMs Nose: Normal Inspection, Normal Mucosa, No Blood Throat/Mouth: Normal Inspection, Normal Lips, Normal Teeth, Normal Gums, Normal Oropharynx, Normal Voice, No Airway Compromise Head: Atraumatic, Normocephalic Neck: Normal Inspection, Supple, Non-Tender, Full Range of Motion Respiratory/Chest: No Respiratory Distress, Lungs Clear, Normal Breath Sounds, No Accessory Muscle Use, Chest Non-Tender GI/Abdominal: Normal Bowel Sounds, Soft, Non-Tender, No Organomegaly, No Distention, No Abnormal Bruit, No Mass (Female) Exam: Deferred Rectal (Female) Exam: Deferred Back Exam: Normal Inspection, Full Range of Motion Extremities: Normal Inspection, Normal Range of Motion, Non-Tender, Normal Capillary Refill, No Pedal Edema Neurological: Alert, Oriented, CN II-XII Intact, Normal Cognition, Normal Gait, Normal Reflexes, No Motor/Sensory Deficits Psychiatric: Normal Affect, Normal Mood Skin Exam: Warm, Dry, Intact, Normal Color, No Rash Course - Vital Signs Last Recorded V/S: Last Vital Signs Temp 98.6 F 09/25/20 13:12 Pulse 99 09/25/20 13:12 Resp 20 09/25/20 13:12 BP 107/78 09/25/20 13:12 Pulse Ox 96 09/25/20 13:12 - Orders/Labs/Meds Labs: Laboratory Tests 09/25/20 09/25/20 09/25/20 Range/Units 14:02 14:02 14:02 WBC 5.2 (5.0-10.0) 10^3/uL RBC 3.93 L (4.2-5.4) 10^6/uL Hgb 11.5 L (12.0-16.0) g/dL Hct 36.9 L (37.0-47.0) % MCV 93.9 (80-100) fL MCH 29.3 (27.0-34.0) pg MCHC 31.2 L (33.0-35.0) g/dL Plt Count 384 (150-450) 10^3/uL Lymph % (Auto) 27.5 (20.5-50.1) % Emmet % (Auto) 7.9 (2-8) % Eos % (Auto) 1.0 (1.0-3.0) % Add Manual Diff Yes Neutrophils % (Manual) 64 (42-75) % Band Neutrophils % 1 % Lymphocytes % (Manual) 30 (20-50) % Monocytes % (Manual) 5 (2-8) % PT 10.4 (9.0-12.0) SEC INR 1.1 (0.9-1.2) D-Dimer, Quantitative 2080 H (0-400) ng/mL Sodium 141 (136-145) mmol/L Potassium 3.8 (3.5-5.1) mmol/L Chloride 104 (98-107) mmol/L Carbon Dioxide 26 (21-32) mmol/L Anion Gap 14.8 H (7-13) mEq/L BUN 12 (7-18) mg/dL Creatinine 0.69 (0.55-1.02) mg/dL Est Cr Clr Drug Dosing 81.92 mL/min Estimated GFR (MDRD) > 60 BUN/Creatinine Ratio 17.4 (No establ ref range) Glucose 97 (74-99) mg/dL Calcium 8.5 (8.5-10.1) mg/dL Total Bilirubin 0.3 (0.2-1.0) mg/dL AST 14 L (15-37) U/L ALT 30 (14-59) U/L Alkaline Phosphatase 105 (46-116) U/L Troponin I < 0.017 (0.000-0.056) ng/mL Total Protein 7.5 (6.4-8.2) g/dL Albumin 3.2 L (3.4-5.0) g/dL Globulin 4.3 Albumin/Globulin Ratio 0.74 Urine Color (YELLOW) Urine Appearance (CLEAR) Urine pH (5.0-9.0) Ur Specific Mcdonald (1.005-1.030) Urine Protein (NEGATIVE) Urine Glucose (UA) (NEGATIVE) Urine Ketones (NEGATIVE) Urine Occult Blood (NEGATIVE) Urine Nitrite (NEGATIVE) Urine Bilirubin (NEGATIVE) Urine Urobilinogen (0.2-1.0) mg/dL Ur Leukocyte Esterase (NEGATIVE) SARS-CoV-2 RNA (ACE) (NEGATIVE) 09/25/20 09/25/20 Range/Units 14:03 14:03 WBC (5.0-10.0) 10^3/uL RBC (4.2-5.4) 10^6/uL Hgb (12.0-16.0) g/dL Hct (37.0-47.0) % MCV (80-100) fL MCH (27.0-34.0) pg MCHC (33.0-35.0) g/dL Plt Count (150-450) 10^3/uL Lymph % (Auto) (20.5-50.1) % Emmet % (Auto) (2-8) % Eos % (Auto) (1.0-3.0) % Add Manual Diff Neutrophils % (Manual) (42-75) % Band Neutrophils % % Lymphocytes % (Manual) (20-50) % Monocytes % (Manual) (2-8) % PT (9.0-12.0) SEC INR (0.9-1.2) D-Dimer, Quantitative (0-400) ng/mL Sodium (136-145) mmol/L Potassium (3.5-5.1) mmol/L Chloride (98-107) mmol/L Carbon Dioxide (21-32) mmol/L Anion Gap (7-13) mEq/L BUN (7-18) mg/dL Creatinine (0.55-1.02) mg/dL Est Cr Clr Drug Dosing mL/min Estimated GFR (MDRD) BUN/Creatinine Ratio (No establ ref range) Glucose (74-99) mg/dL Calcium (8.5-10.1) mg/dL Total Bilirubin (0.2-1.0) mg/dL AST (15-37) U/L ALT (14-59) U/L Alkaline Phosphatase (46-116) U/L Troponin I (0.000-0.056) ng/mL Total Protein (6.4-8.2) g/dL Albumin (3.4-5.0) g/dL Globulin Albumin/Globulin Ratio Urine Color Yellow (YELLOW) Urine Appearance Slightly cloudy (CLEAR) Urine pH 5.0 (5.0-9.0) Ur Specific Mcdonald >= 1.030 (1.005-1.030) Urine Protein Negative (NEGATIVE) Urine Glucose (UA) Negative (NEGATIVE) Urine Ketones Negative (NEGATIVE) Urine Occult Blood Negative (NEGATIVE) Urine Nitrite Negative (NEGATIVE) Urine Bilirubin Negative (NEGATIVE) Urine Urobilinogen 0.2 (0.2-1.0) mg/dL Ur Leukocyte Esterase Negative (NEGATIVE) SARS-CoV-2 RNA (ACE) Negative (NEGATIVE) Meds: Medications Discontinued Medications Generic Name Dose Route Start Last Admin Trade Name Freq PRN Reason Stop Dose Admin Iopamidol 100 ml 09/25/20 15:14 09/25/20 15:44 Isovue-370 (76%) IVPUSH 09/25/20 15:15 100 ml ONETIME ONE Administration - Radiology Interpretation Free Text/Narrative:: Chest xray: PROCEDURE INFORMATION: Exam: XR Chest Exam date and time: 09/25/2020 2:13 PM Age: 55 years old Clinical indication: Shortness of breath; Additional info: SOB TECHNIQUE: Imaging protocol: XR of the chest Views: 2 views. COMPARISON: CR Chest 1V Frontal 03/16/2018 12:50 PM FINDINGS: Lungs: Unremarkable. No consolidation. Pleural spaces: Unremarkable. No pleural effusion. No pneumothorax. Heart/Mediastinum: Mild cardiomegaly. Bones/joints: Unremarkable. IMPRESSION: Mild cardiomegaly. Otherwise unremarkable chest Thank you for allowing us to participate in the care of your patient. Dictated and Authenticated by: Obdulio Arias MD 09/25/2020 2:37 PM Central Time ([place] & [place]) Chest CT with contrast, PE study: PROCEDURE INFORMATION: Exam: CT Chest With Contrast; Diagnostic Exam date and time: 09/25/2020 4:12 PM Age: 55 years old Clinical indication: Cough and shortness of breath and other: Chest pain 3 days, d-dimer 0; Additional info: Elevated ddimer TECHNIQUE: Imaging protocol: Diagnostic computed tomography of the chest with contrast. Radiation optimization: All CT scans at this facility use at least one of these dose optimization techniques: automated exposure control; mA and/or kV adjustment per patient size (includes targeted exams where dose is matched to clinical indication); or iterative reconstruction. Contrast material: [id number]; Contrast volume: 92 ml; Contrast route: INTRAVENOUS (IV); COMPARISON: CR Chest 2V 09/25/2020 2:13 PM FINDINGS: Lungs: Unremarkable. No consolidation. No masses. Pleural spaces: Unremarkable. No pneumothorax. No pleural effusion. Heart: Unremarkable. Cardiomegaly. No pericardial effusion. Aorta: Unremarkable. No aortic aneurysm. Lymph nodes: Unremarkable. No enlarged lymph nodes. Bones/joints: Unremarkable. No acute fracture. Soft tissues: Unremarkable. Other findings: Cholelithiasis. IMPRESSION: 1. Cardiomegaly. 2. No evidence of acute PE. 3. No acute airspace disease. 4. Cholelithiasis. Stock daily Thank you for allowing us to participate in the care of your patient. Dictated and Authenticated by: Obdulio Arias MD 09/25/2020 4:44 PM Central Time ([place] & [place]) See rad report - Re-Assessments/Exams Free Text/Narrative Re-Assessment/Exam: 09/25/20 17:34 I personally performed or re-performed the physical examination and medical decision making. I have verified all student documentation or findings, including history, physical exam and/or medical decision making. Sepsis Event Note (ED) - Evaluation Sepsis Screening Result: No Definite Risk - Focused Exam Vital Signs: Vital Signs Temp Pulse Resp BP Pulse Ox 09/25/20 13:12 98.6 F 99 20 107/78 96 I have read and agree with the documentation that has been completed regarding this visit. By signing this record, I attest that the documentation was completed in my physical presence and is an accurate record of the encounter.
== END 2020-09-25 17:16 | disposition home or self-care (01) ==
LOC: DL.ED 12:41
DX: R06.00 Dyspnea, unspecified (principal); K80.20 Calculus of gallbladder without cholecystitis without obstruction; I10 Essential (primary) hypertension; K21.9 Gastro-esophageal reflux disease without esophagitis; G62.9 Polyneuropathy, unspecified; M32.9 Systemic lupus erythematosus, unspecified; E03.9 Hypothyroidism, unspecified; E66.9 Obesity, unspecified; Z68.43 Body mass index [BMI] 50.0-59.9, adult; Z91.011 Allergy to milk products; Z88.5 Allergy status to narcotic agent; Z88.2 Allergy status to sulfonamides; Z91.048 Other nonmedicinal substance allergy status; Z20.822 Contact with and (suspected) exposure to COVID-19; Z79.899 Other long term (current) drug therapy
CPT/HCPCS: 36415; 71046; 71260; 80053; 81003; 84484; 85025; 85379; 85610; 93005; 99284; 99285-25; Q9967; U0002

== ENCOUNTER 2023-06-01 11:29 | Emergency (ER) | payer MEDICARE, MEDICAID ==
[2023-06-01] MEDS ORDERED: Sodium Chloride 0.9% 10 ML Syringe FLUSH PRN (11:42)
[2023-06-01] MEDS ORDERED: Ketorolac 30 MG/ML SDV IVPUSH ONE (11:43)
[2023-06-01] MEDS ORDERED: Sodium Chloride 0.9% 1,000 ML IV ONE (11:43)
[2023-06-01 11:51] VITALS: BP 129/71; PULSE 90
[2023-06-01 12:00] LABS: HEMATOCRIT 27.7 % (37.0-47.0); MEAN CORPUSCULAR HEMOGLOBIN 26.1 pg (27.0-34.0); MEAN CORPUSCULAR HGB CONC 28.9 g/dL (33.0-35.0); MEAN CORPUSCULAR VOLUME 90.5 fL (80-100); PLATELET COUNT,PLT 246 10^3/uL (150-450); RED BLOOD CELL COUNT 3.06 10^6/uL (4.2-5.4); WHITE BLOOD CELL COUNT,WBC 6.5 10^3/uL (5.0-10.0)
[2023-06-01 12:16] LABS: LYMPHOCYTES PERCENT MAN 13 % (20-50); MONOCYTES PERCENT MAN 6 % (2-8); SEG NEUTROPHILS PERCENT MAN 81 % (42-75)
[2023-06-01 12:17] LABS: HYPOCHROMASIA 2+ MODERATE
[2023-06-01 12:19] LABS: ALBUMIN 3.2 g/dL (3.4-5.0); ANION GAP 11.2 mEq/L (7-13); BILIRUBIN TOTAL 0.5 mg/dL (0.2-1.0); BUN/CREATININE RATIO 20.8 (No establ ref range); CALCIUM 8.2 mg/dL (8.5-10.1); CREATININE 0.77 mg/dL (0.55-1.02); EST CRCL DRUG DOSING (CG) 67.93 mL/min; PROTEIN TOTAL,TP 7.9 g/dL (6.4-8.2)
[2023-06-01 12:21] LABS: A/G RATIO 0.68
[2023-06-01 12:23] LABS: LACTIC ACID 1.8 mmol/L (0.4-2.0)
[2023-06-01 12:24] LABS: POTASSIUM,K 6.2 mmol/L (3.5-5.1)
[2023-06-01 13:19] LABS: APPEARANCE,URINE CLEAR (CLEAR); BILIRUBIN,URINE NEGATIVE (NEGATIVE); COLOR,URINE YELLOW (YELLOW); GLUCOSE,URINE NEGATIVE (NEGATIVE); KETONES,URINE NEGATIVE (NEGATIVE); LEUKOCYTE ESTERASE,URINE NEGATIVE (NEGATIVE); NITRITE,URINE NEGATIVE (NEGATIVE); OCCULT BLOOD,URINE NEGATIVE (NEGATIVE); PH,URINE 6.5 (5.0-9.0); PROTEIN,URINE NEGATIVE (NEGATIVE)
== END 2023-06-01 13:56 | disposition home or self-care (01) ==
LOC: DL.ED 11:29
DX: K80.20 Calculus of gallbladder without cholecystitis without obstruction (principal); D50.0 Iron deficiency anemia secondary to blood loss (chronic); R19.5 Other fecal abnormalities; E03.9 Hypothyroidism, unspecified; E66.9 Obesity, unspecified; I10 Essential (primary) hypertension; K21.9 Gastro-esophageal reflux disease without esophagitis; Z79.899 Other long term (current) drug therapy; Z88.8 Allergy status to other drugs, medicaments and biological substances; Z88.2 Allergy status to sulfonamides; Z88.5 Allergy status to narcotic agent; Z91.011 Allergy to milk products; Z68.39 Body mass index [BMI] 39.0-39.9, adult
CPT/HCPCS: 36415; 74176; 80053; 81003; 82272; 83605; 85025; 96361; 96374; 99284; 99284-25; J1885; J3490; J7030

== ENCOUNTER 2023-06-11 06:20 | Day surgery (SDC) | payer MEDICARE, MEDICAID ==
[2023-06-11] MEDS ORDERED: fentaNYL 100 MCG/2 ML SDV ONE (06:56)
[2023-06-11] MEDS ORDERED: Midazolam 1 MG/ML 2 ML SDV ONE (06:56)
[2023-06-11] MEDS ORDERED: fentaNYL 100 MCG/2 ML SDV IV ONE ×2 (07:29→07:30)
[2023-06-11] MEDS ORDERED: Dextrose 5%-0.45% NaCl 1,000 ML IV SCH (07:30)
[2023-06-11] MEDS ORDERED: Midazolam 1 MG/ML 2 ML SDV IV ONE ×2 (07:30→07:31)
[2023-06-11 09:42] VITALS: BP 110/55; PULSE 80
== END 2023-06-11 09:20 | disposition home or self-care (01) ==
LOC: DL.ENDO 06:20
PROVIDERS: ATTEND Internal Medicine Gastroenterology
DX: D64.9 Anemia, unspecified (principal); K29.51 Unspecified chronic gastritis with bleeding; K25.4 Chronic or unspecified gastric ulcer with hemorrhage; K26.4 Chronic or unspecified duodenal ulcer with hemorrhage; F32.A Depression, unspecified; E03.9 Hypothyroidism, unspecified; G47.00 Insomnia, unspecified; E66.09 Other obesity due to excess calories; M33.13 Other dermatomyositis without myopathy; F41.1 Generalized anxiety disorder; K21.9 Gastro-esophageal reflux disease without esophagitis; F17.210 Nicotine dependence, cigarettes, uncomplicated; Z88.8 Allergy status to other drugs, medicaments and biological substances; Z91.040 Latex allergy status; Z88.2 Allergy status to sulfonamides; Z68.39 Body mass index [BMI] 39.0-39.9, adult
CPT/HCPCS: 87077; 88305; 88342; J2250; J3010; J7042

== ENCOUNTER 2023-06-12 06:52 | Day surgery (SDC) | payer MEDICARE, MEDICAID ==
[~2023-06-12 06:52] MED LIST changes: -Sodium Chloride 0.9% 10 ML Syringe FLUSH PRN
[2023-06-12] MEDS ORDERED: Midazolam 1 MG/ML 2 ML SDV ONE (07:26)
[2023-06-12] MEDS ORDERED: fentaNYL 100 MCG/2 ML SDV ONE (07:26)
[2023-06-12] MEDS ORDERED: fentaNYL 100 MCG/2 ML SDV IV ONE ×2 (08:26→08:27)
[2023-06-12] MEDS ORDERED: Midazolam 1 MG/ML 2 ML SDV IV ONE ×2 (08:27→08:29)
[2023-06-12 12:15] VITALS: PULSE 80
[2023-06-12 12:17] VITALS: BP 106/53
== END 2023-06-12 10:15 | disposition home or self-care (01) ==
LOC: DL.ENDO 06:52
PROVIDERS: ATTEND Internal Medicine Gastroenterology
DX: K92.2 Gastrointestinal hemorrhage, unspecified (principal); D50.9 Iron deficiency anemia, unspecified; F32.A Depression, unspecified; E03.9 Hypothyroidism, unspecified; F41.1 Generalized anxiety disorder; E66.09 Other obesity due to excess calories; Z68.39 Body mass index [BMI] 39.0-39.9, adult; F17.210 Nicotine dependence, cigarettes, uncomplicated; Z91.040 Latex allergy status; Z88.2 Allergy status to sulfonamides
CPT/HCPCS: J2250; J3010; J7042

== ENCOUNTER 2024-02-11 09:30 | Emergency (ER) | payer MEDICARE, MEDICAID ==
[2024-02-11] MEDS: Iopamidol 612 MG/ML 100 ML Bottle IVPUSH ONE (10:05)
[2024-02-11 10:20] LABS: MEAN CORPUSCULAR HEMOGLOBIN 21.6 pg (27.0-34.0); MEAN CORPUSCULAR HGB CONC 25.1 g/dL (33.0-35.0); PLATELET COUNT,PLT 213 10^3/uL (150-450); RED BLOOD CELL COUNT 2.22 10^6/uL (4.2-5.4); WHITE BLOOD CELL COUNT,WBC 3.6 10^3/uL (5.0-10.0)
[2024-02-11 10:23] LABS: BASOPHILS PERCENT AUTO 4.5 % (0.0-1.0); EOSINOPHILS PERCENT AUTO 0.8 % (1.0-3.0); HEMATOCRIT 19.1 % (37.0-47.0); HEMOGLOBIN 4.8 g/dL (12.0-16.0); LYMPHOCYTES PERCENT AUTO 35.9 % (20.5-50.1); MONOCYTES PERCENT AUTO 9.5 % (2-8); NEUTROPHILS PERCENT AUTO 49.3 % (42.2-75.2)
[2024-02-11 10:41] LABS: MAGNESIUM 1.9 mg/dL (1.8-2.4)
[2024-02-11 10:48] LABS: ETHANOL BLOOD MEDICAL < 3 mg/dL (0)
[2024-02-11 10:52] LABS: LYMPHOCYTES PERCENT MAN 32 % (20-50); SEG NEUTROPHILS PERCENT MAN 53 % (42-75)
[2024-02-11 10:53] LABS: BASOPHILS PERCENT MAN 2; EOSINOPHILS PERCENT MAN 1 % (1-3); HYPOCHROMASIA 2+ MODERATE; MONOCYTES PERCENT MAN 10 % (2-8); MYELOCYTE PERCENT MAN 2; NRBC MANUAL 2 /100WBC; PLATELET COUNT ESTIMATE ADEQUATE; STOMATOCYTES 1+ SLIGHT
[2024-02-11] MEDS: Pantoprazole 80 MG in Sodium Chloride 0.9% 100 ML IV SCH (11:19)
[2024-02-11 11:36] LABS: ALBUMIN 2.2 g/dL (3.4-5.0); ANION GAP 11.5 mEq/L (7-13); BILIRUBIN TOTAL 0.2 mg/dL (0.2-1.0); CALCIUM 8.1 mg/dL (8.5-10.1); CREATININE 0.89 mg/dL (0.55-1.02); EST CRCL DRUG DOSING (CG) 65.37 mL/min; POTASSIUM,K 3.5 mmol/L (3.5-5.1); PROTEIN TOTAL,TP 7.2 g/dL (6.4-8.2)
[2024-02-11 11:38] LABS: A/G RATIO 0.44
[2024-02-11 12:19] LABS: APPEARANCE,URINE CLEAR (CLEAR); BILIRUBIN,URINE NEGATIVE (NEGATIVE); COLOR,URINE YELLOW (YELLOW); GLUCOSE,URINE NEGATIVE (NEGATIVE); KETONES,URINE NEGATIVE (NEGATIVE); LEUKOCYTE ESTERASE,URINE NEGATIVE (NEGATIVE); NITRITE,URINE NEGATIVE (NEGATIVE); OCCULT BLOOD,URINE NEGATIVE (NEGATIVE); PH,URINE 5.5 (5.0-9.0); PROTEIN,URINE NEGATIVE (NEGATIVE); UROBILINOGEN,URINE 0.2 mg/dL (0.2-1.0)
[2024-02-11] MEDS: Sodium Chloride 0.9% 1,000 ML IV ONE (12:39)
[2024-02-11 13:31] VITALS: BP 102/67; PULSE 83
== END 2024-02-11 13:55 ==
LOC: DL.ED 09:30
DX: D62 Acute posthemorrhagic anemia (principal); K92.2 Gastrointestinal hemorrhage, unspecified; E86.0 Dehydration; I10 Essential (primary) hypertension; K21.9 Gastro-esophageal reflux disease without esophagitis; E03.9 Hypothyroidism, unspecified; Z88.2 Allergy status to sulfonamides; Z88.8 Allergy status to other drugs, medicaments and biological substances; Z91.011 Allergy to milk products; Z79.890 Hormone replacement therapy; Z79.899 Other long term (current) drug therapy; Z86.16 Personal history of COVID-19; Z90.49 Acquired absence of other specified parts of digestive tract; Z90.710 Acquired absence of both cervix and uterus
CPT/HCPCS: 36415; 36430; 70450; 74177; 80053; 80307; 81003; 82272; 83735; 84484; 85025; 85610; 86850; 86900; 86901; 86920; 86922; 93005; 93010; 96365; 96366; 99284; 99285; C1758; J2470; J3490; J7030; P9016; Q9967

== ENCOUNTER 2024-11-13 11:00 | Emergency (ER) | payer MEDICARE, MEDICAID ==
[2024-11-13 11:10] VITALS: BP 111/61; PULSE 72
[2024-11-13] MEDS: Dexamethasone 4 MG/ML SDV IM ONE (11:20)
== END 2024-11-13 11:24 | disposition home or self-care (01) ==
LOC: DL.ED 11:00
DX: M06.9 Rheumatoid arthritis, unspecified (principal); K21.9 Gastro-esophageal reflux disease without esophagitis; I10 Essential (primary) hypertension; E03.9 Hypothyroidism, unspecified; Z88.2 Allergy status to sulfonamides; Z88.8 Allergy status to other drugs, medicaments and biological substances; Z91.011 Allergy to milk products; Z79.890 Hormone replacement therapy; Z79.899 Other long term (current) drug therapy; Z86.16 Personal history of COVID-19; Z90.49 Acquired absence of other specified parts of digestive tract; Z90.710 Acquired absence of both cervix and uterus
CPT/HCPCS: 96372; 99283; J1100; 99284

== ENCOUNTER 2025-01-26 09:24 | Observation (INO) | payer MEDICARE, MEDICAID ==
[2025-01-26 10:05] LABS: PLATELET COUNT,PLT 399 10^3/uL (150-450); RED BLOOD CELL COUNT 4.72 10^6/uL (4.2-5.4); WHITE BLOOD CELL COUNT,WBC 3.6 10^3/uL (5.0-10.0)
[2025-01-26 10:06] LABS: BASOPHILS PERCENT AUTO 5.8 % (0.0-1.0); EOSINOPHILS PERCENT AUTO 0.0 % (1.0-3.0); LYMPHOCYTES PERCENT AUTO 39.7 % (20.5-50.1); MONOCYTES PERCENT AUTO 1.7 % (2-8); NEUTROPHILS PERCENT AUTO 52.8 % (42.2-75.2)
[2025-01-26 10:27] LABS: ALANINE AMINOTRANSFERASE,ALT 108.0 U/L (14-59); ASPARTATE AMNIOTRANSFERASE,AST 58.0 U/L (15-37); BILIRUBIN TOTAL 0.3 mg/dL (0.2-1.0); BLOOD UREA NITROGEN,BUN 12.0 mg/dL (7-18); CARBON DIOXIDE,CO2 29.0 mmol/L (21-32); CHLORIDE,CL 103.0 mmol/L (98-107); CREATININE 1.12 mg/dL (0.55-1.02); EST CRCL DRUG DOSING (CG) 48.06 mL/min; GLUCOSE RANDOM 191.0 mg/dL (70-99); POTASSIUM,K 3.8 mmol/L (3.5-5.1); PROTEIN TOTAL,TP 8.5 g/dL (6.4-8.2); SODIUM,NA 140.0 mmol/L (136-145)
[2025-01-26 10:29] LABS: A/G RATIO 0.55; ESTIMATED GFR 56.0 mL/min (>=60)
[2025-01-26 10:30] LABS: B-TYPE NATRIURETIC PEPTIDE,BNP 21.0 pg/ml (0-100); LACTIC ACID 4.0 mmol/L (0.4-2.0)
[2025-01-26] MEDS: Lactated Ringers 1,000 ML IV SCH (10:54)
[2025-01-26 11:26] LABS: BAND PERCENT MAN 1 %; LYMPHOCYTES % ATYPICAL MANUAL 5 %; LYMPHOCYTES PERCENT MAN 38 % (20-50); MONOCYTES PERCENT MAN 2 % (2-8); SEG NEUTROPHILS PERCENT MAN 54 % (42-75)
[2025-01-26] MEDS: Iopamidol 755 Mg/ML 100 ML Bottle IVPUSH ONE (11:26)
[2025-01-26] MEDS ORDERED: Ondansetron 4 MG/2 ML SDV IVPUSH PRN (12:37)
[2025-01-26] MEDS ORDERED: Sodium Chloride 0.9% 10 ML Syringe FLUSH PRN (12:37)
[2025-01-26 15:11] LABS: INR 1.0 (0.9-1.2); PTT,PARTIAL THROMBOPLSTIN TIME 24.3 SEC (22.0-34.0)
[2025-01-26 15:14] LABS: D-DIMER QUANTITATIVE 1560.0 ng/mL (0-400)
[2025-01-26 15:41] LABS: APPEARANCE,URINE CLEAR (CLEAR); GLUCOSE,URINE NEGATIVE (NEGATIVE); OCCULT BLOOD,URINE NEGATIVE (NEGATIVE)
[2025-01-26] MEDS ORDERED: Omeprazole 20 MG Cap.CR PO PRN (16:06)
[2025-01-26] MEDS: Sodium Chloride 0.9% 10 ML Syringe FLUSH SCH (21:18)
[2025-01-26] MEDS: Calcium Carbonate/Vitamin D3 1250 MG-5 MCG Tab PO SCH (21:18)
[2025-01-27 06:33] LABS: BASOPHILS PERCENT AUTO 2.9 % (0.0-1.0); EOSINOPHILS PERCENT AUTO 0.2 % (1.0-3.0); LYMPHOCYTES PERCENT AUTO 38.5 % (20.5-50.1); MONOCYTES PERCENT AUTO 9.5 % (2-8); NEUTROPHILS PERCENT AUTO 48.9 % (42.2-75.2); PLATELET COUNT,PLT 299 10^3/uL (150-450); RED BLOOD CELL COUNT 4.05 10^6/uL (4.2-5.4); WHITE BLOOD CELL COUNT,WBC 5.8 10^3/uL (5.0-10.0)
[2025-01-27 06:56] LABS: ALANINE AMINOTRANSFERASE,ALT 58.0 U/L (14-59); ASPARTATE AMNIOTRANSFERASE,AST 24.0 U/L (15-37); BILIRUBIN TOTAL 0.2 mg/dL (0.2-1.0); BLOOD UREA NITROGEN,BUN 10.0 mg/dL (7-18); CARBON DIOXIDE,CO2 31.0 mmol/L (21-32); CHLORIDE,CL 106.0 mmol/L (98-107); CREATININE 0.84 mg/dL (0.55-1.02); EST CRCL DRUG DOSING (CG) 64.09 mL/min; GLUCOSE RANDOM 85.0 mg/dL (70-99); POTASSIUM,K 4.1 mmol/L (3.5-5.1); PROTEIN TOTAL,TP 6.3 g/dL (6.4-8.2); SODIUM,NA 139.0 mmol/L (136-145)
[2025-01-27 06:58] LABS: A/G RATIO 0.58; ESTIMATED GFR 80.0 mL/min (>=60)
[2025-01-27 12:02] VITALS: BP 131/61; PULSE 70
== END 2025-01-27 13:35 | disposition home or self-care (01) ==
LOC: DL.ED 09:24 → DL.MS 12:09 → INTOOBSV 12:09 → UNDOADMIN 12:09
PROVIDERS: ADMIT Student in an Organized Health Care Education/Training Program; ATTEND Internal Medicine
DX: A41.9 Sepsis, unspecified organism (principal); J18.9 Pneumonia, unspecified organism; E87.20 Acidosis, unspecified; D72.819 Decreased white blood cell count, unspecified; R74.8 Abnormal levels of other serum enzymes; I10 Essential (primary) hypertension; E03.9 Hypothyroidism, unspecified; Z88.2 Allergy status to sulfonamides; Z88.8 Allergy status to other drugs, medicaments and biological substances; Z90.49 Acquired absence of other specified parts of digestive tract; Z87.891 Personal history of nicotine dependence; Z79.899 Other long term (current) drug therapy; Z79.890 Hormone replacement therapy; Z91.011 Allergy to milk products
CPT/HCPCS: 36415; 71275; 80053; 81003; 83605; 83735; 83880; 84484; 85025; 85379; 85610; 85730; 87040; 93005; 93010; 93970; 94010; 94667; 96361; 96365; 96375; 96376; 99223; 99239; 99284; 99285; A9270; G0378; J0456; J0696; J1650; J7030; J7050; J7120; Q9967